=== PATIENT | male | born 1935 | race Caucasian/White ===

== ENCOUNTER → 2024-04-26 09:24 | Outpatient (REF) | payer MEDICARE, OTHER, SELFPAY ==
[2024-04-26 11:18] LABS: Hematocrit 38.9 % (39.0-52.0); Hemoglobin 12.4 g/dL (13.0-18.0); Mean Corp Hgb Conc. 31.9 g/dL (33.0-37.0); Mean Corpuscular Volume 94.2 fL (80.0-94.0); Mean Platelet Volume 10.5 fL (7.4-10.4); Platelet Count 229 10^3/uL (130-400); Red Blood Cell Count 4.13 10^6/uL (4.70-6.10); White Blood Cell Count 7.2 10^3/uL (4.8-10.8)
[2024-04-26 11:33] LABS: ALT (SGPT) 16 U/L (0-50); AST (SGOT) 23 U/L (17-59); Albumin 3.6 g/dl (3.5-5.0); Alkaline Phosphatase 121 U/L (38-126); Blood Urea Nitrogen 25 mg/dl (9-20); Calcium 9.1 mg/dl (8.4-10.2); Carbon Dioxide 31 mmol/L (22-30); Chloride 104 mmol/L (98-107); Glucose 81 mg/dl (70-99); HDL Cholesterol 43 mg/dl; LDL Cholesterol, Calculated 102 mg/dl; Sodium 142 mmol/L (135-145); Total Bilirubin 0.4 mg/dl (0.2-1.3); Total Cholesterol 183 mg/dl (50-199); Triglyceride 194 mg/dl (10-149); Very Low Density Lipoprotein 38 mg/dl (0-30); eGFR > 60.00
[2024-04-26 11:47] LABS: Vitamin D, 25-OH*** 18.9 ng/mL (30-80)
[2024-04-26 12:20] LABS: Vitamin B12 466 pg/ml (239-931)
[2024-04-26 12:36] LABS: Glycohemoglobin (HgbA1c) 5.7 % (4.0-5.6)
[2024-04-27 20:59] LABS: Keppra (Levetiracetam) 14 ug/mL (10-40)
== END ==
LOC: OLABN 09:24
PROVIDERS: ATTENDING PHYSICIAN Internal Medicine Geriatric Medicine
DX: E78.5 Hyperlipidemia, unspecified (principal); G40.919 Epilepsy, unspecified, intractable, without status epilepticus; Z79.899 Other long term (current) drug therapy
CPT/HCPCS: 36415; 80053; 80061; 80177; 82306; 82607; 83036; 85027

== ENCOUNTER → 2024-05-31 13:21 | Outpatient (REF) | payer MEDICARE, OTHER, SELFPAY ==
[2024-05-31 13:50] LABS: Hematocrit 34.8 % (39.0-52.0); Hemoglobin 11.4 g/dL (13.0-18.0); Mean Corp Hgb Conc. 32.8 g/dL (33.0-37.0); Mean Corpuscular Hgb 30.4 pg (27.0-31.0); Mean Corpuscular Volume 92.8 fL (80.0-94.0); Mean Platelet Volume 10.7 fL (7.4-10.4); Platelet Count 305 10^3/uL (130-400); Red Blood Cell Count 3.75 10^6/uL (4.70-6.10); Red Cell Dist. Width 13.7 % (11.5-14.5); White Blood Cell Count 10.3 10^3/uL (4.8-10.8)
[2024-05-31 14:22] LABS: ALT (SGPT) 37 U/L (0-50); AST (SGOT) 31 U/L (17-59); Albumin 3.1 g/dl (3.5-5.0); Alkaline Phosphatase 97 U/L (38-126); Blood Urea Nitrogen 25 mg/dl (9-20); Calcium 8.9 mg/dl (8.4-10.2); Carbon Dioxide 29 mmol/L (22-30); Chloride 104 mmol/L (98-107); Glucose 102 mg/dl (70-99); Potassium 3.3 mmol/L (3.5-5.1); Sodium 141 mmol/L (135-145); Total Bilirubin 0.5 mg/dl (0.2-1.3); Total Protein 5.9 g/dl (6.3-8.2); eGFR > 60.00
[2024-05-31 15:05] LABS: NT-proBNP 598 pg/ml
== END ==
LOC: OLABN 13:21
PROVIDERS: ATTENDING PHYSICIAN Internal Medicine Geriatric Medicine
DX: E78.5 Hyperlipidemia, unspecified (principal)
CPT/HCPCS: 36415; 80053; 83880; 85027

== ENCOUNTER 2024-06-13 23:48 | Inpatient (IN) | payer MEDICARE, OTHER, SELFPAY ==
[2024-06-13] VITALS (10 sets, daily range): BP systolic 87–129; BP diastolic 39–60
--- NOTE | 2024-06-13 19:22 | ED.GENMED ---
History of Present Illness
General
Chief Complaint: Breathing Problem
Source: patient and ambulance crew
Exam Limitations: none
Time Seen by Provider: 06/13/24 19:17
Nursing documentation reviewed up to this point in time: agreed with
History of Present Illness
History of Present Illness:
88-year-old male presents emergency ferment due to cough and pneumonia that is not improving. He is on oxygen, which she is not usually on.
Past History
Past History
ED Past Medical History: Hypercholesterolemia, Other (History of C. difficile, rash, restless leg) and Other (dementia); Negative Asthma, CAD or Cancer
ED Past Surgical History: None and Appendectomy
Social History
Tobacco: Non-smoker
Alcohol: Occasional
Drug: None
Personal:
Living: with family
Employment: Retired
Family History
Family History: Other (Noncontributory)
Review of Systems
Review of Systems
Allergies reviewed?: Yes
All Other Systems: Not applicable
Constitutional: Reports no symptoms
EENT: Reports no symptoms
Respiratory: Reports cough and trouble breathing
Cardiac: Reports no symptoms
ABD/GI: Reports no symptoms
: Reports no symptoms
Musculoskeletal: Reports no symptoms
Skin: Reports no symptoms
Neurological: Reports no symptoms
Endocrine: Reports no symptoms
Hematologic/Lymphatic: Reports no symptoms
Psychiatric: Reports no symptoms
Phy Exam
Physical Exam
Physical Exam:
Physical Exam
General: Afebrile
Neck: supple. no meningeal signs. normal posterior pharynx
Heart: s1/s2 regular rate and rhythm, no murmur. equal radial
pulses.
HEENT: Pupils equal round reactive to light, EOMI
Lungs: no acute respiratory distress. Right-sided rhonchi
Abdomen: normal bowel sounds. not tender. no CVAT
Neuro: alert and oriented. no focal neurological deficits cranial nerves II through XII intact
Skin: no rash
Psychiatric: well kept. interactive and cooperative
Extremities: no edema. no calf tenderness. negative homans. good distal pulses
Scores
Heart Failure Risk
Heart Failure Risk Score: Not Applicable
Course
Orders/Labs/Results
Orders:
Orders
06/13/24 19:17
Cardiac Monitoring- Treatment ONCE
IV Insert/Care/Rem.- Treatment PRN
O2 Therapy [RESP] Stat
Titrate/Wean O2 to maintain O2 sat greater than (%): 92
Pulse Ox/cont/shift [RESP] Stat
Quantity: 1
06/13/24 19:43
CT Chest With Iv Contrast Urgent
Comment:
Reason For Exam: right lower lobe pneumonia, possible cavitary lesi
06/13/24 20:00
Complete Blood Count/With Diff Urgent
Lactic Acid Q4H
Comment: CANCEL 2nd LACTIC ACID IF 1st LACTIC ACID IS LESS THAN 2
Blood Culture Urgent
ZEKE Source: Blood/Venous
Specimen Description:
06/13/24 20:37
Comprehensive Metabolic Panel Urgent
06/13/24 21:18
0.9% Sodium Chloride 1000 ml [Nss] 1,000 ml IV BOLUS
06/13/24 23:01
Heparin 6,100 units IV NOW STA
Pharmacy Request to Place See Dose Instructions PO NOW STA
Discontinue all Active Warfarin orders?: Yes
06/13/24 23:02
PTT Urgent
Comment: Obtain baseline before beginning heparin infusion if not already collected
Nursing to Place Non Medication Order As Directed
Physician Order: PTT 6 hours after initial start of Heparin infusion
06/13/24 23:15
Heparin 32625 Units/250 ml 25,000 units in 250 ml IV PER PROTOCOL
Weight to be used for heparin protocol in kilograms (kg):: 76.4
Protocol:: DVT/PE
PTT Goal Range to be used:: PTT 73 to 111 seconds
Order type:: Initial
INITIAL Infusion Dose (UNITS/KG/hr) & then follow protocol:: 18 units/kg/hr
Infusion Dose in UNITS/hr & then follow protocol (UNITS/hr):: 1,400
INFUSION RATE in mL/hr & then follow protocol (mL/hr):: 14
For DVT/PE algorithm, re-bolus for low PTT?: Yes
PTT less than or equal to 64 seconds:: Re-bolus 80 units/kg (max 10,000units). Increase by 300 units/hr
(+ 3mL/hr)
PTT 64.1 to 72.9 seconds:: Re-bolus 40 units/kg (max 5,000 units). Increase by 200 units/hr
(+ 2mL/hr)
PTT 73 to 111 seconds:: Target Range. No change in rate.
PTT 111.1 to 130.9 seconds:: Decrease rate by 200 units/hr (- 2 mL/hr)
PTT 131 to 199.9 seconds:: HOLD for 1 hr. Then decrease by 200 units/hr (- 2mL/hr)
PTT greater than or equal to 200 seconds:: HOLD for 2 hrs & Notify Provider. Then decrease by 300 units/hr
(- 3mL/hr)
Lab follow-up:: Each change, PTT q6h until 2 consecutive are therapeutic. Then
PTT daily.
06/13/24 23:[address] See Dose Instructions IV DIRECTED
Abnormal Lab Results
06/13/24 06/13/24
20:00 20:37
RBC 3.87 L 10^6/uL
(4.70-6.10)
Hgb 11.4 L g/dL
(13.0-18.0)
Hct 33.5 L %
(39.0-52.0)
Absolute Neuts (auto) 7.4 H 10^3/uL
(1.4-6.5)
Absolute Monos (auto) 0.7 H 10^3/uL
(0.1-0.6)
Lymphocytes % 16.6 L %
(20.5-51.1)
Glucose 115 H mg/dl
(70-99)
Total Protein 5.7 L g/dl
(6.3-8.2)
Albumin 2.9 L g/dl
(3.5-5.0)
06/13/24 20:00
06/13/24 20:37
Vital Signs
Initial and Last Documented VS:
Initial Vital Signs
Temp Pulse Resp BP Pulse Ox
98.3 F 72 16 129/58 94
06/13/24 19:09 06/13/24 19:09 06/13/24 19:09 06/13/24 19:09 06/13/24 19:09
Last Documented Vital Signs
Temp Pulse Resp BP Pulse Ox
98.3 F 63 16 87/45 94
06/13/24 19:09 06/13/24 21:16 06/13/24 21:16 06/13/24 21:16 06/13/24 21:16
MDM/Problems Addressed
Differential Diagnosis Includes:
Pulmonary emboli, cavitary lesion, pneumonia
MDM/Problems Addressed:
88-year-old male with bilateral pulmonary emboli, cavitary lesion versus lung mass versus pneumonia
*Radiology
Radiology exam reviewed: radiology read reviewed (CT chest shows bilateral pulmonary emboli, right side cavitary lesion versus lung mass)
*Pulse Oximetry
Patient hypoxic: yes
*EKG
Interpreted by ED Provider?: NA
*Creel Hand Interpretation
Rate: normal
Interpretation: normal
Heart Rate: 65
Rhythm: sinus
*Critical Care Note
Total Time (30-74mins, 75-104mins- exclusive of procedures): 30
comment:
Critical care statement: A total of 30 minutes of critical care time was provided for this patient. This includes management of unstable vital signs, evaluation of the patient at bedside, reviewing the patient's pertinent medical records, discussion
with consultants, review of old EKGs and review of pertinent medical records. This time with separate from time utilized to perform the aforementioned documented procedures
Data Reviewed
Review of Other/Old Records Reveals: Records (Chest x-ray shows right side cavitary lesion)
Source: records
Patient Management
Social determinants of health affecting care: Living situation
Discussion with other providers: Hospitalist and Radiologist
Escalation/DeEscalation of care consider admission/obs:
Admit indicated
ED Attending Note
-
Portions of this chart may have been created with voice recognition software.� Occasional wrong word or��sound alike� substitutions may have occurred due to the inherent limitations of voice recognition software.
Discharge Plan
Departure
Patient Disposition: Admit
Date of Disposition: 06/13/24
Time of Disposition: 23:00
Admit to: IMU
Presentation/result/management discussed w/ accepting MD/DO: Hospitalist
Condition: Fair
Discharge Problem:
Pulmonary embolism, bilateral, Pulmonary cavitary lesion
Prescriptions:
No Action
memantine 28 MG capsule,sprinkle,ER 24hr
28 mg PO DAILY
donepezil 23 MG tablet
23 mg PO HS
Vitamin B-12: Tab
1 tab PO WEEKLY
sertraline 50 MG tablet
37.5 mg PO DAILY
cholecalciferol (vitamin D3) [Vitamin D3] 1,000 UNIT capsule
2,000 unit PO HS
Referrals:
Ki Argueta MD [Family Provider] -
Interventions
Interventions:
*Risk Screen - Suicide Last Done: 06/13/24 19:10
*Neglect/Abuse Screening Last Done: 06/13/24 19:10
Discharge Date and Time
Print Language: HUNGARIAN
[2024-06-13 20:28] LABS: % Basophils 0.5 % (0-2); % Eosinophils 2.1 % (0-6); % Immature Granulocytes 0.4 % (0-0.5); % Lymphocytes 16.6 % (20.5-51.1); % Monocytes 6.7 % (1.7-9.3); % Neutrophils 73.7 % (42.2-75.2); Absolute Basophils 0.1 10^3/uL (0-0.2); Absolute Eosinophils 0.2 10^3/uL (0-0.7); Absolute Lymphocytes 1.7 10^3/uL (1.2-3.4); Absolute Monocytes 0.7 10^3/uL (0.1-0.6); Absolute Neutrophils 7.4 10^3/uL (1.4-6.5); Hematocrit 33.5 % (39.0-52.0); Hemoglobin 11.4 g/dL (13.0-18.0); Mean Corpuscular Hgb 29.5 pg (27.0-31.0); Mean Corpuscular Volume 86.6 fL (80.0-94.0); Mean Platelet Volume 9.5 fL (7.4-10.4); Nucleated Red Blood Cells % 0 % (-); Platelet Count 356 10^3/uL (130-400); Red Blood Cell Count 3.87 10^6/uL (4.70-6.10); White Blood Cell Count 10.1 10^3/uL (4.8-10.8)
[2024-06-13 20:39] LABS: Lactic Acid 1.1 mmol/L (0.7-2.0)
[2024-06-13 21:12] LABS: ALT (SGPT) 22 U/L (0-50); AST (SGOT) 24 U/L (17-59); Albumin 2.9 g/dl (3.5-5.0); Alkaline Phosphatase 118 U/L (38-126); Blood Urea Nitrogen 18 mg/dl (9-20); Calcium 9.3 mg/dl (8.4-10.2); Carbon Dioxide 28 mmol/L (22-30); Chloride 105 mmol/L (98-107); Glucose 115 mg/dl (70-99); Potassium 3.5 mmol/L (3.5-5.1); Sodium 136 mmol/L (135-145); Total Bilirubin 0.4 mg/dl (0.2-1.3); Total Protein 5.7 g/dl (6.3-8.2); eGFR > 60.00
[2024-06-13] MEDS: NSS 1000 IV (21:24)
[2024-06-13 23:29] LABS: APTT 48.3 Sec (23.4-35.0)
--- NOTE | 2024-06-13 23:37 | HPS.HSE ---
Family Physician
-
Family Physician: Ki Argueta
Chief Complaint
-
Anorexia / Hypoxemia
History of Present Illness
Patient is an 88y M with PMH significant for senile dementia who presents to ED from [facility] for evaluation of ongoing anorexia, hypoxemia and malaise. Patient has baseline dementia and does not meaningfully contribute to this history.
He denies any current complaints and cannot explain recent events, why he was sent to the ED, etc.
[place] records indicate that patient had CXR performed on 05/31/24 which showed R base infiltrate. It is not entirely clear what symptoms the patient initially exhibited to lead to the CXR.
He was placed on doxycycline 100mg BID which he took for 10 days total - last doses on 06/10/24.
Despite completing this course, patient was noted by staff to have progressive anorexia 0- eventually refusing all meals.
He did not appear distressed; however, he would occasionally have SpO2 in the high 80s / low 90s and was started on supplemental oxygen.
With ongoing symptoms of anorexia and malaise, a repeat CXR was done on 06/13. This showed some improvement in R base opacity; however, it also noted a new cavitary lesion at the superior aspect of the RLL which was new.
Patient was sent to the ED for further evaluation.
He denies any chest pain, dyspnea, cough, etc.
CT scan done here in the ED shows bilateral pulmonary emboli as well as the aforementioned R mid-lung cavitary lesion - ? due to infection v pulmonary infarct v other.
Medical History
Past Medical History
Past Medical History: Reports Other
Additional Past Medical History:
Senile Dementia
Anxiety / Depression
Seizure Disorder
Past Surgical History: Reports Other
Additional Past Surgical History:
Appendectomy
Carpal Tunnel
T&A
Social History
Tobacco: Former Smoker
Living: [facility]
Family History
Family History: Unable to Obtain
Allergies / Home Medications
Allergies reflects when Allergies were last updated in [id number].
Home Medications with original date entered in [id number]
Allergy/Medication List:
Allergies
Allergy/AdvReac Type Severity Reaction Status Date / Time
penicillin G [Penicillin G] Allergy Rash Verified 11/23/18 11:07
Home Medications
cholecalciferol (vitamin D3) 50 mcg (2,000 unit) tablet 50 mcg PO DAILY 06/13/24
diclofenac sodium 1 % topical gel 2 g topical BID 06/13/24
levetiracetam 500 mg tablet 500 mg PO BID 06/13/24
melatonin 5 mg tablet 5 mg PO HS 06/13/24
memantine 10 mg tablet 10 mg PO BID 06/13/24
quetiapine 25 mg tablet 12.5 mg PO DAILY@1330 06/13/24
quetiapine 25 mg tablet 25 mg PO DAILY 06/13/24
sertraline 25 mg tablet 25 mg PO DAILY 06/13/24
simvastatin 20 mg tablet 20 mg PO QPM 06/13/24
trazodone 50 mg tablet 50 mg PO HS 06/13/24
Review of Systems
-
Unable to obtain full review of systems at this time due to: Dementia
History Source: Patient (Patient denies any current complaints. Limited ROS secondary to dementia.)
Physical Exam
Vital Signs
Vital Signs
Temp Pulse Resp BP Pulse Ox
98.3 F 59 18 104/46 94
06/13/24 19:09 06/13/24 23:15 06/13/24 23:15 06/13/24 23:00 06/13/24 23:00
Physical Exam
General: Other (88y M in no acute distress.)
HEENT: Moist mucous membranes and PERRLA
Respiratory: Other (Few coarse breath sounds on the R. Otherwise clear. Poor inspiratory effort.)
Cardiac: S1/S2 and Regular Rhythm; No Murmur
GI: Soft, Non Tender, Non Distended and Normal Bowel Sounds
Musculoskeletal: No Clubbing, No Cyanosis and No Edema
Neuro: Awake, Alert and Nonfocal/grossly intact; No Oriented
Psych: No Agitated or Anxious
Laboratory Results
-
06/13/24 20:00
06/13/24 20:37
Laboratory Results
Lactic Acid 1.1 mmol/L (0.7-2.0) 06/13/24 20:00
Total Bilirubin 0.4 mg/dl (0.2-1.3) 06/13/24 20:37
AST 24 U/L (17-59) 06/13/24 20:37
ALT 22 U/L (0-50) 06/13/24 20:37
Alkaline Phosphatase 118 U/L (38-126) 06/13/24 20:37
Impression/Plan
-
A/P: Patient is an 88y M with PMH significant for dementia who presents to ED for evaluation of anorexia and abnormal CXR.
Bilateral Pulmonary Emboli
Hypoxemic Respiratory Insufficiency secondary to the above
- Admit for further evaluation and treatment.
- Patient with SpO2 in the high 80s / low 90s and is requiring supplemental O2.
- CT scan as noted with bilateral PE - ? chronic component by imaging.
- IV heparin protocol initiated in the ED.
- Transition to DOAC prior to discharge.
- Pulmonary evaluation.
- Check Echo.
Cavitary Lung Lesion
- ? cavitation secondary to pneumonia / infection versus pulmonary infarct versus other.
- Completed 10 days course of doxycycline for prior abnormal CXR (RLL infiltrate).
- Afebrile, not toxic appearing and no noted cough, leukocytosis, etc.
- Will cover with Vanco / Cefepime for now pending further evaluation.
- Treat PE as noted above.
- Pulmonary evaluation for additional recommendations.
Seizure Disorder
- No evident / noted recent seizure activity.
- Continue current Keppra dosing without changes.
Senile Dementia with Behavioral Disturbance
- Stable. Not currently anxious / agitated.
- Continue OP Aricept / Namenda / etc.
- Continue quetiapine / trazodone for agitation.
- PRN Ativan if necessary.
DVT Prophylaxis: On IV Heparin
Code Status: DNR
[2024-06-13] MEDS: HEPARIN 6100 UNITS IV (23:59)
[2024-06-14] VITALS (34 sets, daily range): BP systolic 92–137; BP diastolic 39–123; PULSE 71; O2SAT 99; BMI 25.7
[2024-06-14] MEDS: HEPARIN 25000 UNITS/250 ML IV (00:02)
--- NOTE | 2024-06-14 02:29 | PTCARENOTE ---
Pt received from ED. Oriented to self, pleasantly confused. Able to follow simple commands. RA, pulse ox 97%. Breath sounds diminished t/o. SR/sinus payam, HR=50s-60s, B/L radial pulses palpable, B/L DP weak but palpable. Bowel sounds present,
abdomen soft. Incontinent of large amount of urine, condom cath applied. Safe environment maintained, plan of care ongoing.
[2024-06-14 02:51] LABS: Hematocrit 32.1 % (39.0-52.0); Hemoglobin 10.8 g/dL (13.0-18.0); Mean Corp Hgb Conc. 33.6 g/dL (33.0-37.0); Mean Corpuscular Hgb 30.4 pg (27.0-31.0); Mean Corpuscular Volume 90.4 fL (80.0-94.0); Mean Platelet Volume 9.8 fL (7.4-10.4); Platelet Count 332 10^3/uL (130-400); Red Blood Cell Count 3.55 10^6/uL (4.70-6.10); Red Cell Dist. Width 13.8 % (11.5-14.5); White Blood Cell Count 8.9 10^3/uL (4.8-10.8)
[2024-06-14 03:10] LABS: Troponin I 0.023 ng/ml
[2024-06-14 03:16] LABS: Blood Urea Nitrogen 16 mg/dl (9-20); Calcium 8.6 mg/dl (8.4-10.2); Carbon Dioxide 26 mmol/L (22-30); Chloride 106 mmol/L (98-107); Estimated Creatinine Clearance 77 ml/min; Glucose 95 mg/dl (70-99); Sodium 137 mmol/L (135-145); eGFR > 60.00
[2024-06-14 03:26] LABS: Potassium 3.4 mmol/L (3.5-5.1)
[2024-06-14] MEDS: NSS 1000 IV ×2 (03:55→15:00)
[2024-06-14 03:58] LABS: TSH Reflex To Free T4 2.73 uIU/ml (0.47-4.68)
[2024-06-14] MEDS: MAXIPIME 2000 MG IV ×3 (04:52→19:37)
[2024-06-14] MEDS: KCL 20 MEQ PO (04:57)
--- NOTE | 2024-06-14 05:12 | PTCARENOTE ---
K = 3.4, 40meq tablet ordered. Pt took the 1st 20meq tablet without issue, then spit the 2nd tab out and refused to accept anything PO. Provider notified, ordered 20meq IVPB.
[2024-06-14] MEDS: VANCOCIN 535 MG IV (06:05)
[2024-06-14] MEDS: STERILE WATER FOR INJECTION 10 ML IV ×3 (06:05→19:37)
[2024-06-14] MEDS: KCL 160 MEQ IV (06:05)
--- NOTE | 2024-06-14 06:30 | PTCARENOTE ---
Pt attempting to pull IVs, pulled condom cath and pulse ox off multiple times. Provider notified, ordered B/L mitts.
[2024-06-14 07:16] LABS: APTT > 200.0 Sec (23.4-35.0)
--- NOTE | 2024-06-14 07:17 | CON.PUL ---
Consultation
Consultation Request
Date/Time Consultation Requested: 06/14/24
Date/Time Consultation Performed: 06/14/24
Performing Provider: Hema
Reason for Consultation: Abnl CT
Medical History
-
History of Present Illness:
Patient is an 88-year-old male with previous history of dementia, depression, hyperlipidemia presenting from [facility] for evaluation of weight loss, hypoxemia and generalized malaise. He had outpatient chest imaging demonstrating right
basilar infiltrate. He was placed on p.o. course of doxycycline 100 mg twice daily which he took for a total of 10 days, last dose reportedly 06/10/2024. He was noted by staff with progressive anorexia, refusing all meals. He is demonstrating
failure to thrive. On arrival to ER, CT chest obtained demonstrating cavitary lesion at right lower lobe and bilateral PE, new compared to CXR in 2021.
He has no other constitutional symptoms, afebrile.
He was a former smoker but could not quantify duration/amount.
Never told he had lung disease in past.
Has traveled out of country in past but only to [place] a long time ago.
No exposures to anyone with known TB that he is aware of.
Past Medical History
Past Medical History: Other (see list below)
Social History
Tobacco: Former Smoker
Alcohol: None
Drug: None
Family History
Family History: Reviewed & Not Pertinent
Allergies / Home Medications
Allergies
Allergy/AdvReac Type Severity Reaction Status Date / Time
penicillin G [Penicillin G] Allergy Rash Verified 11/23/18 11:07
Home Medications
�Medication �Instructions �Recorded �Confirmed �Last Taken �Type
cholecalciferol (vitamin D3) 50 50 mcg PO DAILY 06/13/24 06/13/24 Unknown History
mcg (2,000 unit) tablet
diclofenac sodium 1 % topical gel 2 g topical BID 06/13/24 06/13/24 Unknown History
levetiracetam 500 mg tablet 500 mg PO BID 06/13/24 06/13/24 Unknown History
melatonin 5 mg tablet 5 mg PO HS 06/13/24 06/13/24 Unknown History
memantine 10 mg tablet 10 mg PO BID 06/13/24 06/13/24 Unknown History
quetiapine 25 mg tablet 12.5 mg PO DAILY@1330 06/13/24 06/13/24 Unknown History
quetiapine 25 mg tablet 25 mg PO DAILY 06/13/24 06/13/24 Unknown History
sertraline 25 mg tablet 25 mg PO DAILY 06/13/24 06/13/24 Unknown History
simvastatin 20 mg tablet 20 mg PO QPM 06/13/24 06/13/24 Unknown History
trazodone 50 mg tablet 50 mg PO HS 06/13/24 06/13/24 Unknown History
Review of Systems
-
History Source: Patient and Half-Way
All other systems: Negative unless noted
Vitals / Labs / Diagnostic Testing
Vital Signs
Temp Pulse Resp BP Pulse Ox
98.0 F 69 14 121/63 95
06/14/24 03:30 06/14/24 05:30 06/14/24 05:30 06/14/24 05:25 06/14/24 05:35
Lab Data
06/14/24 02:40
06/14/24 02:40
Laboratory Results
06/13/24 06/14/24
23:11 05:51
APTT 48.3 H > 200.0 H*
Diagnostic Testing:
Physical Exam
-
HEENT: Normocephalic, Anicteric, Moist Mucous Membranes and Other (poor dentition)
Cardiovascular: S1/S2 and Regular Rhythm
Respiratory: Clear and Non-Labored Respirations
GI: Soft, Non Distended and Non Tender
Neurology: Awake, Alert, No Motor Deficits and Other (confused)
Skin: Warm, Dry and Good Color
General: Comfortable and Other (NAD, thin appearing)
Assessment
-
Patient is an 88-year-old male with previous history of dementia, depression, hyperlipidemia presenting from [facility] for evaluation of weight loss, hypoxemia and generalized malaise. He had outpatient chest imaging demonstrating right
basilar infiltrate. He was placed on p.o. course of doxycycline 100 mg twice daily which he took for a total of 10 days, last dose reportedly 06/10/2024. He was noted by staff with progressive anorexia, refusing all meals. He is demonstrating
failure to thrive. On arrival to ER, CT chest obtained demonstrating cavitary lesion at right lower lobe and bilateral PE, new compared to CXR in 2021.
Acute hypoxic respiratory insufficiency
Acute bilateral PE
New cavitary lesion, RLL since 2021, unclear chronicity
Weight loss with anorexia
Poor dentition
Conditions present [employer]
Arthritis
Alzheimer's disease
Depression
Carpal tunnel
C-diff
Appendectomy 2006
Hyperlipidemia
Diverticulosis
Ulcerative colitis
Vitamin B12 deficiency
COVID 03/2022
Tonsillectomy 194
Procedure: excision of soft tissue mass on leg 04/10/2011
Former smoker
Plan
Hypoxemia noted on arrival, but his O2 willie 91% on record
Currently saturating 95% on RA
No history of home O2 use
Prior history of lung disease is not noted--
He was a former smoker but could not quantify duration/amount.
Never told he had lung disease in past.
Has traveled out of country in past but only to [place] a long time ago.
No exposures to anyone with known TB that he is aware of.
CXR/CT obtained indicating bilateral PE, which may be related to sedentary behavior at [place]
He is noted to have new cavitary lesion in RLL, new since 2021
He has no other constitutional symptoms, afebrile.
Other imaging reviewed for comparison
Cavitary lesions may be due to chronic aspiration with aerobes, NTM, lung cancer (particularly squamous)
He demonstrates aspiration risk, with poor dentition
Speech therapy eval showing elevated risk
His risk for TB is low except potential exposure at facility
Afebrile currently, no WBC
Generalized weakness and fatigue have been ongoing for years (as far back as 2016) based on records
He has anorexia/weight loss but this seems more consistent with FTT
Ideally, would obtain sputum culture to rule out, but he is unable to produce
Can try to induce sample
No prior history of cardiac disease
Prior ECHO results are reviewed indicating normal function
Smoking history noted--former smoker
He does not quantify well
Lung cancer risk difficult to assess but certainly on the differential
Outpatient PET/CT would be helpful
Weight loss noted
Can have dietary eval ongoing FTT complaints
Palliative care discussion may also be warranted given underlying dementia
He is DNR
We will follow
Diagnostic Data
Chest X-Ray: 03/16/22- Normal
CT Scan: CHEST 06/13/24- Examination is positive for pulmonary embolism. Cavitary lesion centered within the right middle lobe, probably extending into the inferior aspect of the adjacent right upper lobe. Differential considerations are discussed
above, perhaps cavitary lesion from chronic pulmonary embolism. Two other focal opacities as described, one within the right lower lobe and one within the inferolateral and posterior lingula. These most likely represent focal areas of infarction or
pneumonia, although foci of neoplasia are also possible. Coronary artery calcifications. Please correlate with symptoms of and risk factors for coronary artery disease, with further workup as clinically appropriate.
Echo: 04/27/21- 1. Mild concentric left ventricular hypertrophy with preserved systolic function, EF 65-70% 2. Trace mitral regurgitation with normal left atrium 3. Aortic sclerosis/borderline aortic stenosis with mild aortic regurgitation 4. Normal
right heart with normal pulmonary artery pressure. The study is similar to March 2019. At that time peak/mean aortic valve gradients were 11/5 mmHg
PFT's:
Reports and relevant images were personally reviewed.
Total time spent on this consultation __76__ includes review of history, physical exam, medications, laboratory data, personal review of imaging, extensive review of outpatient records, discussion with care team and respiratory therapy.
[2024-06-14] MEDS: SEROQUEL PO ×2 (07:52→14:34)
[2024-06-14] MEDS: NAMENDA PO (07:52)
[2024-06-14] MEDS: ZOLOFT PO (07:52)
--- NOTE | 2024-06-14 08:17 | PHA.VAN.IN ---
Addendum entered and electronically signed by Bonnie Redding Donna 06/14/24 09:32:
Consulting provider = Dr. Lucia
Consult performed in conjunction with pharmacy billing adjudicator. Agree with assessment and plan below.
Original Note:
Assessment
- Assessment
Renal Function: Appears similar to baseline
AUC Dosing Plan
- Dosing Variables
Dosing Weight (kg): 72.2
Dosing CrCl (ml/min): 77
Vd coefficient (L/kg): 0.7
- Empiric Dosing
Initial / Loading Dose: 1750mg Once 06/14/24/ 06:05
Maintenance Regimen: 750mg Q12H Starting at 06/14/24 18:00
Estimated AUC (mcg*h/mL): 449
Estimated Peak (mcg*h/mL): 26.5
Estimated Trough (mcg/ml): 12.5
Estimated Half Life (H): 10.1
- Monitoring
No levels ordered at this time: consider in the next couple of days
Pharmacokinetics Vancomycin I
- -
Patient Age: 88
Patient Sex: Male
Vancomycin Day #: 1
Indication: Pulmonary/Respiratory
Requesting Provider: Dr Camacho
Pertinent Antimicrobial Allergies:
Penicillin G - Rash
Height / Weight:
Height 5 ft 6 in
Actual Weight 72.2 kg
- Vital Signs / Lab Results
Temp Pulse Resp BP Pulse Ox
98.0 F 69 14 121/63 95
06/14/24 03:30 06/14/24 05:30 06/14/24 05:30 06/14/24 05:25 06/14/24 05:35
Lab Results - Hematology
06/13/24 06/14/24
20:00 02:40
WBC 10.1 8.9
Lab Results - Chemistry
06/13/24 06/13/24 06/14/24
20:00 20:37 02:40
BUN Cancelled 18 16
Creatinine Cancelled 0.7 0.6 L
Estimated Creat Clear Cancelled 77
Albumin Cancelled 2.9 L
06/13/24 06/13/24
19:30 20:00
Lactic Acid Cancelled 1.1
[2024-06-14 09:04] LABS: Troponin I 0.014 ng/ml
--- NOTE | 2024-06-14 09:07 | PTCARENOTE ---
Patient is alert to person only, confused, refusing medications, attending made aware. Patient remains on telemetry monitoring. Heparin drip paused per PTT result per protocol. Condom cath in place for urinary elimination. Patient laying in bed,
offers no complaints at this time.
[2024-06-14] MEDS: KEPPRA 500 MG IV ×2 (09:20→19:36)
--- NOTE | 2024-06-14 09:59 | W.PN.HOSP.TC ---
Today's Communication/Plan
-
Stable for tele
Assessment / Plan
Assessment / Plan
HPI: 88y M with PMH significant for dementia who presents to ED for evaluation of anorexia and abnormal CXR.
Bilateral Pulmonary Emboli
Hypoxemic Respiratory Insufficiency secondary to the above
- Hypoxia resolved, currently on room air
- Change IV heparin to Eliquis this evening
- Pulmonology following, echo requested
Cavitary Lung Lesion
- Completed 10 days course of doxycycline for prior abnormal CXR (RLL infiltrate)
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
- Unable to do full workup as patient cannot produce sputum sample
- Currently on vancomycin and cefepime
- Started GOC discussions w/ family 06/14
Seizure Disorder
- No evident / noted recent seizure activity.
- Continue current Keppra dosing without changes.
Senile Dementia with Behavioral Disturbance
- Continue OP Aricept / Namenda / etc.
- Continue quetiapine / trazodone for agitation.
- Resides at [facility]
DVT Prophylaxis: Change IV heparin to Eliquis
Code Status: DNR
Updated daughter on phone 06/14
Total time spent to see the patient on the floor, examine the patient, review data and lab results, discuss treatment plan with patient, nursing staff around 50 minutes.
Physical Exam
General: Appears chronically debilitated, no acute distress
HEENT: Normocephalic, Atraumatic, EOMI, MMM
Respiratory: Clear to Auscultation bilaterally
Cardiac: Normal S1/S2, Regular Rate and Rhythm
GI: Soft, Nontender, Nondistended, Normal Bowel Sounds
Extremities: No Clubbing, Cyanosis, or Edema
Neuro: Pleasantly confused
Psych: Calm, Cooperative
Anticipated Discharge: > 48 hours
Subjective/Interval History
-
Date of Service: June 14, 2024
Patient refused many of his medications this morning. No fever, no vomiting.
Objective Data
-
Labs:
Laboratory Results
06/13/24 06/14/24 06/14/24
23:11 02:40 05:51
WBC 8.9
Hgb 10.8 L
Hct 32.1 L
Plt Count 332
APTT 48.3 H > 200.0 H*
Sodium 137
Potassium 3.4 L
Chloride 106
Carbon Dioxide 26
BUN 16
Creatinine 0.6 L
Glucose 95
Calcium 8.6
Vital Signs:
Vital Signs
Temp Pulse Resp BP Pulse Ox
98.2 F 69 14 121/63 95
06/14/24 08:27 06/14/24 05:30 06/14/24 05:30 06/14/24 05:25 06/14/24 08:00
I&O
06/13/24 06/14/24 06/15/24
06:59 06:59 06:59
Intake Total 676 / 790 214 / 214
Balance 676 / 790 214 / 214
--- NOTE | 2024-06-14 12:24 | CM ---
CM following re: discharge planning.
Reviewed pt's chart, met with pt.
Pt is an 88 year old male admitted with primary dx of Bilateral Pulmonary Embolism.
Pt is a LTC resident at [facility], on 15 day Medicaid bed hold, w/c bound, requires assistance of 1 with transfer, confused due to Dementia. CM spoke to [facility] cis coordinator Mariusz and she confirmed that pt is a LTC resident and pt will be accepted
back when medically stable.
D/C plan: return back to [facility] for a LTC.
CM will follow with discharge plan updates as hospitalization progresses
--- NOTE | 2024-06-14 12:31 | PTOTSP ---
Dysphagia Evaluation
Patient with signs which may be concerning for aspiration (i.e., cavitary lesion of right lung) and risk factors for dysphagia (i.e., dementia). Video swallow study would be limited given patient's significantly limited oral acceptance and food
refusal.
Given his limited dentition (2 natural lower teeth) and confusion, recommend dysphagia diet below understanding that pharyngeal dysphagia and aspiration/silent aspiration cannot be ruled out at this time. Will continue to follow pending
patient/family goals of care.
Recommend:
1. IDDSI Level 5 (Minced/Moist), IDDSI Level 0 (Thin liquids)
2. Medications -as best tolerated
3. Full supervision and assistance
4. Strategies: upright to 90 degrees, small single sips/bites, slow rate, ensure patient clears mouth before next sip/bite, honor verbal/behavioral signs of food/liquid refusal
5. Dysphagia therapy at the acute care level for further assessment of swallowing function and caregiver/family instruction/education as appropriate.
--- NOTE | 2024-06-14 14:02 | PTOTSP ---
Patient dependent assist x 2 for bed mobility and encouragement for sitting EOB.
Patient is not able to participate in meaningful way in therapy and is not able to follow directions for mobility. Recommend return to LTC at discharge. If needs change, please re-consult.
[2024-06-14 17:02] LABS: APTT 157.3 Sec (23.4-35.0)
[2024-06-14] MEDS: VANCOCIN 150 IV (17:06)
[2024-06-14] MEDS: LIPITOR PO (17:10)
[2024-06-14] MEDS: ELIQUIS 10 MG PO (19:34)
--- NOTE | 2024-06-14 20:32 | PTCARENOTE ---
Received pt in bed, b/l mitts in place, neurovascularly intact. Pt's daughter, Dahiana, at the bedside. Pt AAOx1, pleasantly confused, no complaints of pain, follows commands appropriately. Condom catheter in place, draining clear/yellow urine. NSR
on the monitor, SpO2 99% on RA, lungs diminished throughout. Remainder of assessment as documented. Pt was able to take his Eliquis pills with applesauce and water without issue with the help of his daughter. Pt and daughter updated on POC for the
evening. Pt's daughter states the hospitalist mentioned hospice care to her on the phone, briefly discussed hospice/palliative care with pt's daughter; offered to place a consult for the hospice team to meet with her and more thoroughly discuss GOC
and philosophy of the hospice team, pt's daughter politely declined at this time, states she will be visiting with her brother tomorrow morning and they will discuss and update their needs as available. Emotional support provided, pt's daughter
without questions at this time. Pt repositioned, resting in bed comfortably at this time.
[2024-06-14] MEDS: NAMENDA 10 MG PO (21:45)
[2024-06-14] MEDS: DESYREL 50 MG PO (21:45)
[2024-06-15] VITALS (11 sets, daily range): BP systolic 108–146; BP diastolic 45–69; BMI 26.4
[2024-06-15] MEDS: NSS 1000 IV (01:10)
[2024-06-15] MEDS: MAXIPIME 2000 MG IV ×2 (04:46→11:29)
[2024-06-15] MEDS: STERILE WATER FOR INJECTION 10 ML IV ×2 (04:46→11:29)
[2024-06-15 05:24] LABS: Hematocrit 33.2 % (39.0-52.0); Mean Corp Hgb Conc. 33.1 g/dL (33.0-37.0); Mean Corpuscular Hgb 29.1 pg (27.0-31.0); Mean Corpuscular Volume 87.8 fL (80.0-94.0); Mean Platelet Volume 9.7 fL (7.4-10.4); Platelet Count 353 10^3/uL (130-400); Red Blood Cell Count 3.78 10^6/uL (4.70-6.10); Red Cell Dist. Width 13.8 % (11.5-14.5); White Blood Cell Count 8.7 10^3/uL (4.8-10.8)
[2024-06-15] MEDS: VANCOCIN 150 IV (05:53)
--- NOTE | 2024-06-15 07:13 | W.PN.PUL3 ---
Addendum entered and electronically signed by Sabiha Garrido DO 06/15/24 13:05:
PE- treated with IV heparin, now transitioned to Eliquis
May need to discuss risk vs benefit of this as well while on pall care, can be reviewed as OP
Original Note:
Today's Communication / Plan
-
Discussed GOC with family, they do not wish to pursue aggressive measures/invasive testing
We discussed FU as OP if they do wish to follow the CT findings, left referral in chart
Otherwise, family was interested in discussing with hospice, discussed with care team inpatient vs outpatient referral
Dispo planning per team
We will sign off at this time, please call with questions
Assessment
-
Patient is an 88-year-old male with previous history of dementia, depression, hyperlipidemia presenting from [facility] for evaluation of weight loss, hypoxemia and generalized malaise. He had outpatient chest imaging demonstrating right
basilar infiltrate. He was placed on p.o. course of doxycycline 100 mg twice daily which he took for a total of 10 days, last dose reportedly 06/10/2024. He was noted by staff with progressive anorexia, refusing all meals. He is demonstrating
failure to thrive. On arrival to ER, CT chest obtained demonstrating cavitary lesion at right lower lobe and bilateral PE, new compared to CXR in 2021.
Acute hypoxic respiratory insufficiency
Acute bilateral PE
New cavitary lesion, RLL since 2021, unclear chronicity
Weight loss with anorexia
Poor dentition
Conditions present [employer]OCK [employer]
Arthritis
Alzheimer's disease
Depression
Carpal tunnel
C-diff
Appendectomy 2006
Hyperlipidemia
Diverticulosis
Ulcerative colitis
Vitamin B12 deficiency
COVID 03/2022
Tonsillectomy 1945
Procedure: excision of soft tissue mass on leg 04/10/2011
Former smoker
Plan
Hypoxemia noted on arrival, but his O2 willie 91% on record
Currently saturating 95% on RA
No history of home O2 use
Prior history of lung disease is not noted--
He was a former smoker but could not quantify duration/amount.
Never told he had lung disease in past.
Has traveled out of country in past but only to [place] a long time ago.
No exposures to anyone with known TB that he is aware of.
CXR/CT obtained indicating bilateral PE, which may be related to sedentary behavior at ID
He is noted to have new cavitary lesion in RLL, new since 2021
He has no other constitutional symptoms, afebrile.
Other imaging reviewed for comparison
Cavitary lesions may be due to chronic aspiration with aerobes, NTM, lung cancer (particularly squamous)
He demonstrates aspiration risk, with poor dentition
Speech therapy eval showing elevated risk
His risk for TB is low except potential exposure at facility
Afebrile currently, no WBC
Generalized weakness and fatigue have been ongoing for years (as far back as 2015) based on records
He has anorexia/weight loss but this seems more consistent with FTT
Ideally, would obtain sputum culture to rule out, but he is unable to produce
Can try to induce sample
No prior history of cardiac disease
Prior ECHO results are reviewed indicating normal function
Smoking history noted--former smoker
He does not quantify well
Lung cancer risk difficult to assess but certainly on the differential
Outpatient PET/CT would be helpful
Weight loss noted
Can have dietary eval ongoing FTT complaints
Palliative care discussion may also be warranted given underlying dementia
He is DNR
Discussed prognosis wtih family long-term and results of CT scan that may require invasive testing if this is desired. They agree they would not want to pursue aggressive measures.
They inquired about hospice, which I have given referral for OP pall care with Dr Rosa
They were in agreement to get started
Discussed with care team
Otherwise may consider discharge planning
Outpatient pulmonary FU if this is desired by family
Diagnostic Data
Chest X-Ray: 03/16/22- Normal
CT Scan: CHEST 06/13/24- Examination is positive for pulmonary embolism. Cavitary lesion centered within the right middle lobe, probably extending into the inferior aspect of the adjacent right upper lobe. Differential considerations are discussed
above, perhaps cavitary lesion from chronic pulmonary embolism. Two other focal opacities as described, one within the right lower lobe and one within the inferolateral and posterior lingula. These most likely represent focal areas of infarction or
pneumonia, although foci of neoplasia are also possible. Coronary artery calcifications. Please correlate with symptoms of and risk factors for coronary artery disease, with further workup as clinically appropriate.
Echo: 04/27/21- 1. Mild concentric left ventricular hypertrophy with preserved systolic function, EF 65-70% 2. Trace mitral regurgitation with normal left atrium 3. Aortic sclerosis/borderline aortic stenosis with mild aortic regurgitation 4. Normal
right heart with normal pulmonary artery pressure. The study is similar to March 2019. At that time peak/mean aortic valve gradients were 11/5 mmHg
PFT's:
Reports and relevant images were personally reviewed.
Total time spent __36__ includes review of history, physical exam, medications, laboratory data, personal review of imaging, extensive review of outpatient records, discussion with care team and respiratory therapy.
Subjective Data
-
Date of Service:
Date of Service: June 15, 2024
Chief Complaint: Pulmonary Follow Up
Subjective:
Doing well, no complaints
Stable on RA
Family at bedside
Objective Data
Data Reviewed
Vital Signs / I&O / Oxygen:
Vital Signs
Temp Pulse Resp BP Pulse Ox
98.4 F 66 13 131/46 98
06/15/24 03:06 06/15/24 06:00 06/15/24 06:17 06/15/24 06:17 06/15/24 06:17
Intake and Output
06/14/24 06/15/24 06/16/24
06:59 06:59 06:59
Intake Total 676 / 790 2284 / 2284
Output Total 2375 / 2375
Balance 676 / 790 -91 / -91
SaO2 98
Physical Exam
General: Comfortable, Poor Appetite and Other (NAD)
HEENT: Normocephalic, Anicteric, Moist Mucous Membranes and Other (poor dentition)
Cardiovascular: S1-S2 and Regular Rhythm
Respiratory: Clear and Non-Labored Respirations
GI: Soft, Non Distended and Non Tender
Neurology: Awake, Alert and Other (confused)
Skin: Warm, Dry and Good Color
Labs/Micro/Reports
Lab Data
06/15/24 04:56
06/14/24 02:40
Laboratory Results
06/14/24 06/14/24
05:51 16:24
APTT > 200.0 H* 157.3 H*
Microbiology
06/13/24 20:00 Blood/Venous Blood Culture - Preliminary
No Growth in 24 hours- Final report to follow
[2024-06-15] MEDS: ELIQUIS 10 MG PO (07:32)
[2024-06-15] MEDS: SEROQUEL 25 MG PO (07:35)
[2024-06-15] MEDS: NAMENDA 10 MG PO (07:36)
[2024-06-15] MEDS: ZOLOFT 25 MG PO (07:36)
[2024-06-15] MEDS: KEPPRA 500 MG IV ×2 (07:38→20:41)
[2024-06-15] MEDS: NSS IV (08:30)
--- NOTE | 2024-06-15 08:39 | PTCARENOTE ---
Received pt this am with assessment per flowsheet. Able to get am meds in to pt, but then he spit out 1 pill. Upon review, appeared to be namenda. Am care completed, but pt became increasingly agitated with care and began crying and yelling with
mouth care, sub par mouth care given agitation. Pt kept stating he wanted to go to sleep. Left in mitts presently, bed alarm in place. Otherwise please refer to flowsheet.
--- NOTE | 2024-06-15 09:20 | W.PN.HOSP.TC ---
Today's Communication/Plan
-
Discharge to shelter with hospice tomorrow
Assessment / Plan
Assessment / Plan
HPI: 88y M with PMH significant for dementia who presents to ED for evaluation of anorexia and abnormal CXR.
Failure to thrive
Senile Dementia with Behavioral Disturbance
- Continue OP Aricept / Namenda / quetiapine / trazodone
- Patient refusing to eat or drink, family has agreed to hospice
- Discharge to [facility] tomorrow with hospice
Bilateral Pulmonary Emboli
Hypoxemic Respiratory Insufficiency secondary to the above
- Hypoxia resolved, currently on room air
- Family opting for hospice, will stop Eliquis
Cavitary Lung Lesion
- Completed 10 days course of doxycycline for prior abnormal CXR (RLL infiltrate)
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
- Unable to do full workup as patient cannot produce sputum sample
- Stop vancomycin and cefepime
- Cleared by SPL for minced w/ thin liquids
Seizure Disorder
- No evident / noted recent seizure activity.
- Continue current Keppra dosing without changes.
DVT Prophylaxis: none as patient is hospice
Code Status: DNR
Updated family at bedside 06/15
Total time spent to see the patient on the floor, examine the patient, review data and lab results, discuss treatment plan with patient, nursing staff around 51 minutes.
Physical Exam
General: Appears chronically debilitated, no acute distress
HEENT: Normocephalic, Atraumatic, EOMI, MMM
Respiratory: Clear to Auscultation bilaterally
Cardiac: Normal S1/S2, Regular Rate and Rhythm
GI: Soft, Nontender, Nondistended, Normal Bowel Sounds
Extremities: No Clubbing, Cyanosis, or Edema
Neuro: Pleasantly confused
Psych: Calm, Cooperative
Anticipated Discharge: Within 24 hours
Subjective/Interval History
-
Date of Service: June 14, 2024
Patient continues to not eat or drink. He did take some of his pills this morning. No fever, no vomiting.
Objective Data
-
Labs:
Laboratory Results
06/14/24 06/14/24
05:51 16:24
APTT > 200.0 H* Pending
Vital Signs:
Vital Signs
Temp Pulse Resp BP Pulse Ox
98.7 F 64 22 115/81 99
06/14/24 15:05 06/14/24 13:00 06/14/24 13:00 06/14/24 13:00 06/14/24 10:00
I&O
06/13/24 06/14/24 06/15/24
06:59 06:59 06:59
Intake Total 676 / 790 914 / 914
Output Total 750 / 750
Balance 676 / 790 164 / 164
[2024-06-15] MEDS: NSS with KCL 20 MEQ 1000 IV (11:29)
--- NOTE | 2024-06-15 11:48 | PTCARENOTE ---
Children at bedside and updated. Aware that pt hasn't been eating, report this as ongoing issue. Family would like to discuss hospice/palliative. They report they are happy with [facility]. Case management in to discuss with family.
--- NOTE | 2024-06-15 12:31 | CM ---
CM following re: discharge planning.
Reviewed pt's chart, met with pt. Pt's daughter, son and grandson at bedside.
Hospice consult noted. CM discussed it with pt's family and they agree pt return back to [facility] with hospice care. A list of hospice agencies provided, family preferred hospice. Emotional support offered and provided to pt's family. IMM reviewed,
placed on chart, pt's family has a copy.
A referral to hospice made, TTed liakurtis Rouse.
CM spoke to [facility] contract administration coordinator and she confirmed that pt will be accepted with confirmation that pt will be signed in on hospice upon arrival to [facility].
D/C plan:return back to [facility] with hospice. Awaiting for confirmation from hospice regarding accepting the pt for hospice services.
[2024-06-15] MEDS: TYLENOL 650 MG PO (12:51)
[2024-06-15] MEDS: SEROQUEL 12.5 MG PO (12:52)
--- NOTE | 2024-06-15 13:05 | PTCARENOTE ---
pt repositioned, medicated as charted. was able to take meds. given some tylenol as pt was slightly restless. ivf capped as plan to return to [facility] on hospice.
--- NOTE | 2024-06-15 13:07 | W.DCSUMMARY ---
Discharge Summary
Discharge Data
Date of Admission: 06/13/24
Date of Discharge: 06/16/24
-
Pending Results: No
Hospital Course
Discharge diagnosis:
Failure to thrive
Senile dementia with behavioral disturbance
Bilateral pulmonary emboli
Transient hypoxic respiratory sufficiency
Cavitary lung lesion
Seizure disorder
Consults: Pulmonology
Chest CT:
Examination is positive for pulmonary embolism. This finding was communicated by Andreas vale with Dr. Daniel Vaughn on June 13, 2024 at 2300 hours.
Cavitary lesion centered within the right middle lobe, probably extending into the inferior aspect of the adjacent right upper lobe. Differential considerations are discussed above, perhaps cavitary lesion from chronic pulmonary embolism.
Two other focal opacities as described, one within the right lower lobe and one within the inferolateral and posterior lingula. These most likely represent focal areas of infarction or pneumonia, although foci of neoplasia are also possible.
Continued imaging follow-up should be considered.
Coronary artery calcifications. Please correlate with symptoms of and risk factors for coronary artery disease, with further workup as clinically appropriate.
Hospital course:
88-year-old male with a past medical history of senile dementia, recurrent pneumonia, and seizure disorder was admitted for transient hypoxia. He had a chest CT, which shows bilateral pulmonary emboli, as well as cavitary lung lesions.
Patient was seen in conjunction with pulmonology. Differential diagnosis for the cavitary lung lesions include chronic aspiration, NTM, lung cancer (particularly squamous). Due to his dementia, he was unable to produce a sputum sample.
For his pulmonary emboli, he was treated with IV heparin drip, then converted to Eliquis. He has senile dementia with behavioral disturbance, and has been refusing to eat or drink. Given his refusal to eat or drink, his prognosis was poor. Family
agreed to transition him to hospice. He is discharged back to [facility] under hospice.
Disposition: [facility] under hospice
Discharge planning: Required 45 minutes
Discharge Plan
-
Patient Disposition: Hospice - Inpatient
Discharge Diagnosis/Procedures: Bilateral pulmonary emboli, transient hypoxia, cavitary lung lesion, worsening dementia, failure to thrive
Condition: Serious
Diet: Chop all food
Additional Diets: Comfort feeds as tolerated
Additional Activity: Family requesting bed rest
Other Services: Hospice
Activity Restrictions/Additional Instructions:
Family requesting bed rest.
Referrals:
Ki Argueta MD [Family Provider] - in less than 1 week
Ana Laura Rosa MD [Active] - in two weeks
Prescriptions:
New
lorazepam 2 mg/mL concentrate
0.5 mg PO Q2HPRN PRN (Reason: agitation/anxiety) Qty: 30 0RF
Continued
quetiapine 25 mg Tablet
25 mg PO DAILY
quetiapine 25 mg Tablet
12.5 mg PO DAILY@1330
trazodone 50 mg Tablet
50 mg PO HS
levetiracetam 500 mg Tablet
500 mg PO BID
sertraline 25 mg Tablet
25 mg PO DAILY
diclofenac sodium 1 % Gel
2 g TOPICAL BID
Rx Instructions:
2g BID to each knee
melatonin 5 mg Tablet
5 mg PO HS
Discontinued
simvastatin 20 mg Tablet
20 mg PO QPM
memantine 10 mg Tablet
10 mg PO BID
cholecalciferol (vitamin D3) 50 mcg (2,000 unit) Tablet
50 mcg PO DAILY
Discharge Orders:
Discharge Patient (As Directed); Ordered 06/16/24
Ordered By: Blane Camacho
Discharge Date and Time
Discharge Date/Time: 06/16/24 11:15
Print Language: GEORGIAN
--- NOTE | 2024-06-15 13:08 | HOSPNOTE ---
Referral received. Called and spoke to daughter Dahiana. Explained hospice services. She is in agreement but requested that patient be discharged tomorrow. Attending and CM updated. Will arrange ambulance transport and signing onto hospice services
for tomorrow.
--- NOTE | 2024-06-15 13:38 | CHAP ---
Father Jorge Hickey of [facility] in [place] plans to come around 2:30 to give the patient Last Rites, at the request of his family.
[2024-06-15] MEDS: LIPITOR 10 MG PO (17:32)
--- NOTE | 2024-06-15 17:52 | PTCARENOTE ---
complete feed. took barely a taste of each item on tray, 'I don't like it' and flatly refused additional. Had few sips cranberry juice and 1 bite each of salmon, sweet potato, green tee. took meds in applesauce, only the 1 bite then refused
anything further. med/surg level of care, turning, positioning for comfort. Mitts removed, IV sites covered.
[2024-06-15] MEDS: NAMENDA PO (22:20)
[2024-06-15] MEDS: DESYREL PO (22:20)
[2024-06-16 06:00] VITALS: BMI 26.1
--- NOTE | 2024-06-16 08:39 | W.PN.HOSP.TC ---
Today's Communication/Plan
-
Discharge to residential with hospice today
Assessment / Plan
Assessment / Plan
HPI: 88y M with PMH significant for dementia who presents to ED for evaluation of anorexia and abnormal CXR.
Failure to thrive
Senile Dementia with Behavioral Disturbance
- Continue OP Aricept / Namenda / quetiapine / trazodone
- Patient refusing to eat or drink, family has agreed to hospice
- Discharge to [facility] today with hospice
Bilateral Pulmonary Emboli
Hypoxemic Respiratory Insufficiency secondary to the above
- Hypoxia resolved, currently on room air
- Family opting for hospice, stopped Eliquis
Cavitary Lung Lesion
- Completed 10 days course of doxycycline for prior abnormal CXR (RLL infiltrate)
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
- Unable to do full workup as patient cannot produce sputum sample
- Stopped vancomycin and cefepime
- Cleared by SPL for minced w/ thin liquids
Seizure Disorder
- No evident / noted recent seizure activity.
- Continue current Keppra dosing without changes.
DVT Prophylaxis: none as patient is hospice
Code Status: DNR
Updated family at bedside 06/15
Physical Exam
General: Appears chronically debilitated, no acute distress
HEENT: Normocephalic, Atraumatic, EOMI, MMM
Respiratory: Clear to Auscultation bilaterally
Cardiac: Normal S1/S2, Regular Rate and Rhythm
GI: Soft, Nontender, Nondistended, Normal Bowel Sounds
Extremities: No Clubbing, Cyanosis, or Edema
Neuro: Pleasantly confused
Psych: Calm, Cooperative
Anticipated Discharge: Today
Subjective/Interval History
-
Date of Service: June 16, 2024
No acute events. Patient resting in bed comfortably.
Objective Data
-
Vital Signs:
Vital Signs
Temp Pulse Resp BP Pulse Ox
97.4 F 74 16 116/45 95
06/16/24 07:11 06/15/24 12:58 06/15/24 12:58 06/15/24 20:41 06/15/24 08:01
I&O
06/15/24 06/16/24 06/17/24
06:59 06:59 06:59
Intake Total 2284 / 2284 490 / 490
Output Total 2375 / 2375 950 / 950
Balance -91 / -91 -460 / -460
[2024-06-16] MEDS: KEPPRA 500 MG IV (08:59)
[2024-06-16] MEDS: ZOLOFT 25 MG PO (08:59)
[2024-06-16] MEDS: SEROQUEL 25 MG PO (08:59)
[2024-06-16] MEDS: NAMENDA 10 MG PO (08:59)
[2024-06-16 09:01] VITALS: BP 137/69
--- NOTE | 2024-06-16 09:22 | CM ---
CM following re: discharge planning.
Reviewed pt's chart, met with pt.
Discharge order noted.
CM confirmed with meteorologist liaison that pt will be signed in on hospice at [facility]
CM spoke to [facility] college admissions counselor Mariusz, she is aware of pt's discharge time 11:00 and she confirmed that pt is accepted for admission today.
Transportation arranged by with Acute care ambulance with pick up driver time 11:00 a.m. [facility] competed and left with . Out of hospital DNR signed and is on chart.
Both RN,pt's son Yon and [facility] college admissions counselor are aware of discharge tiem.
[facility] nursing repprt: [phone]
Discharge instructions fax: [phone]
D/C plan: return back to [facility] with hospice.
--- NOTE | 2024-06-16 09:43 | CHAP ---
Fr. Jorge Hickey of [facility] in [place] came in the afternoon of 06/15/24 and gave the Sacrament of the Sick and an apostolic pardon to [place]rol. Time uncertain.
--- NOTE | 2024-06-16 10:20 | PTCARENOTE ---
Nursing Report given to Francesco ( Nurse from [facility] ) contact [facility] via phone number [phone] . left and rt peripheral line removed dressing applied. pt incontinent of urine and bowel. Condom catheter removed prior to d/c . oral
temp 97.7 HR 77 BP via Rt upper arm 118/56 MAP 75 95RA
[2024-06-16 10:47] VITALS: BP 118/56; BP_SYST 75
--- NOTE | 2024-06-16 10:55 | PTCARENOTE ---
Daughter Dahiana Leblanc aware regarding d/c
--- NOTE | 2024-06-16 11:49 | PTCARENOTE ---
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
== END 2024-06-16 11:15 | disposition hospice, inpatient (51) | DRG 175 ==
LOC: ICU 23:48
PROVIDERS: ADMITTING PHYSICIAN Hospitalist; ATTENDING PHYSICIAN Family Medicine; EMERGENCY PHYSICIAN Emergency Medicine; FAMILY PHYSICIAN Internal Medicine Geriatric Medicine; OTHER PHYSICIAN Internal Medicine
DX: I26.99 Other pulmonary embolism without acute cor pulmonale (principal); J18.9 Pneumonia, unspecified organism; F02.84 Dementia in other diseases classified elsewhere, unspecified severity, with anxiety; F02.83 Dementia in other diseases classified elsewhere, unspecified severity, with mood disturbance; G30.9 Alzheimer's disease, unspecified; G40.909 Epilepsy, unspecified, not intractable, without status epilepticus; F32.A Depression, unspecified; R63.4 Abnormal weight loss; R62.7 Adult failure to thrive; Z66 Do not resuscitate; Z68.25 Body mass index [BMI] 25.0-25.9, adult; J98.4 Other disorders of lung; K08.9 Disorder of teeth and supporting structures, unspecified; R09.02 Hypoxemia; R06.89 Other abnormalities of breathing; R63.0 Anorexia; R53.81 Other malaise; Z79.899 Other long term (current) drug therapy; Z90.89 Acquired absence of other organs; Z87.19 Personal history of other diseases of the digestive system; Z86.16 Personal history of COVID-19; Z87.891 Personal history of nicotine dependence; Z88.0 Allergy status to penicillin
CPT/HCPCS: 71260; 80048; 80053; 83605; 84443; 84484; 85025; 85027; 85730; 87040; 87070; 92610; 93306; 96374; 96375; 97163; 97166; 97530; 99291; Q9967